=== PATIENT | female | born 1970 | race African-American/Black ===

== ENCOUNTER → 2018-02-04 | Outpatient (CLI) | payer OTHER | END | disposition home or self-care (01) | LOC: MAMMO 09:41 | DX: Z12.31 Encounter for screening mammogram for malignant neoplasm of breast (principal) | CPT/HCPCS: 77067 ==

== ENCOUNTER → 2018-02-15 | Outpatient (CLI) | payer OTHER | END | disposition home or self-care (01) | LOC: MAMMO 13:14 | DX: R92.8 Other abnormal and inconclusive findings on diagnostic imaging of breast (principal) | CPT/HCPCS: 77065; G0279 ==

== ENCOUNTER → 2019-04-07 | Outpatient (CLI) | payer OTHER ==
[2015-10-18 09:09] VITALS: BP 152/88
[~2019-04-07] MED LIST: TRIA1TAB2 PO
--- NOTE | 2019-04-24 10:49 | RAD ---
DATE: 04/07/2019 EXAM: MAMMO VALERY SCREENING BILATERAL HISTORY: Routine screening COMPARISON: 02/15/2018, 02/04/2018 This study was interpreted with the benefit of Computerized Aided Detection (CAD). Breast Density: HETERO The breast parenchyma is heterogenously dense, which could reduce sensitivity of mammography. Breast parenchyma level C. FINDINGS: 2-D and 3-D tomosynthesis imaging was performed in CC and MLO projections. No new or enlarging breast densities are seen. No architectural distortion is evident. Minimal benign type calcifications present. No suspicious microcalcifications have developed. IMPRESSION: There is no mammographic evidence of malignancy in either breast. BI-RADS CATEGORY: 2 BENIGN FINDING(S) RECOMMENDED FOLLOW-UP: 12M 12 MONTH FOLLOW-UP PQRS compliance statement: Patient information was entered into a reminder system with a target due date for the next mammogram. Mammography is a sensitive method for finding small breast cancers, but it does not detect them all and is not a substitute for careful clinical examination. A negative mammogram does not negate a clinically suspicious finding and should not result in delay in biopsying a clinically suspicious abnormality. "Our facility is accredited by the [employer] Mammography Program."
== END | disposition home or self-care (01) ==
LOC: MAMMO 07:58
PROVIDERS: ATTEND Obstetrics & Gynecology
DX: Z12.31 Encounter for screening mammogram for malignant neoplasm of breast (principal); R92.1 Mammographic calcification found on diagnostic imaging of breast
CPT/HCPCS: 77063; 77067

== ENCOUNTER 2019-07-14 17:10 | Emergency (ER) | payer OTHER ==
[~2019-07-14] VITALS: Ht 167.6 cm; Wt 97.1 kg
[2019-07-14] MEDS ORDERED: KETOROLAC 15 MG/ML VIAL. IV ONE (19:00)
[2019-07-14] MEDS ORDERED: ORPHENADRINE CITRATE 60 MG/2 ML VIAL. IV ONE (19:00)
[2019-07-14] MEDS ORDERED: IV NORMAL SALINE 1000ML BAG 1,000 ML IV ONE (19:00)
[2019-07-14 19:21] LABS: BILIRUBIN,URINE NEGATIVE (NEG); CLARITY,URINE CLEAR; COLOR,URINE YELLOW; NITRITE,URINE NEGATIVE (NEG); PROTEIN,URINE NEGATIVE (NEG-TRACE); UROBILINOGEN,URINE 0.2 mg/dL (0.2 mg/dL)
[2019-07-14 19:27] LABS: SQUAMOUS EPITHELIAL CELL,UR MOD /LPF
[2019-07-14 19:28] LABS: BACTERIA,URINE MODERATE /HPF (0-FEW)
[2019-07-14 19:36] LABS: BASO % 0 % (0-3); EOS % 1 % (0-3); HEMOGLOBIN 12.4 g/dL (12.0-15.5); LYMPH # 2.2 x10^3/uL (1.0-4.8); LYMPH % 30 % (24-48); MEAN CORPUSCULAR HEMOGLOBIN 26 pg (25-35); MEAN CORPUSCULAR HGB CONC 34 g/dL (31-37); MEAN CORPUSCULAR VOLUME 76 fL (79-100); MONO # 0.6 x10^3/uL (0.0-1.1); MONO % 9 % (0-9); NEUT # 4.4 x10^3/uL (1.8-7.7); NEUT % 61 % (31-73); PLATELET COUNT 233 x10^3/uL (140-400); RED BLOOD COUNT 4.87 x10^6/uL (3.50-5.40); RED CELL DISTRIBUTION WIDTH 14.6 % (11.5-14.5); WHITE BLOOD COUNT 7.3 x10^3/uL (4.0-11.0)
[2019-07-14 19:45] LABS: CALCIUM 9.3 mg/dL (8.5-10.1); CREATININE 0.9 mg/dL (0.6-1.0); GFR 80.9; POTASSIUM 3.6 mmol/L (3.5-5.1)
[2019-07-14 19:51] LABS: ALBUMIN 3.8 g/dL (3.4-5.0); ALBUMIN/GLOBULIN RATIO 0.8 (1.0-1.7); TOTAL BILIRUBIN 0.7 mg/dL (0.2-1.0); TOTAL PROTEIN 8.7 g/dL (6.4-8.2)
[2019-07-14 19:55] LABS: PROTHROMBIN TIME PATIENT 13.9 SEC (11.7-14.0)
[2019-07-14 19:58] LABS: D-DIMER 0.71 ug/mlFEU (0.00-0.50)
[2019-07-14 20:00] LABS: CREATINE KINASE 140 U/L (26-192)
[2019-07-14 20:23] LABS: PARTIAL THROMBOPLASTIN TIME > 150 SEC (24-38)
[2019-07-14] MEDS ORDERED: CONTRAST GIVEN. MC PRN (21:15)
[2019-07-14] MEDS ORDERED: IOHEXOL 350 MG/ML 100 ML VIAL. IV ONE (21:30)
--- NOTE | 2019-07-14 22:11 | RAD ---
CT ANGIOGRAPHY CHEST Indication: Dyspnea, elevated d-dimer. . Technique: After intravenous contrast administration, CT imaging was performed of the chest. MIP reconstructions were obtained. Exposure: One or more of the following individualized dose reduction techniques were utilized for this examination: 1. Automated exposure control 2. Adjustment of the mA and/or kV according to patient size 3. Use of iterative reconstruction technique. Comparison: None FINDINGS: There is image degradation, probably due to a combination of motion and body habitus. No definite pulmonary embolism is seen. Ascending aorta measures approximately 3.1 cm. There is some wall irregularity of the ascending aorta, likely due to pulsatility artifact. No evidence of aortic aneurysm or descending aortic dissection. Proximal great vessels are patent. The visualized thyroid appears grossly symmetric. No significant lymph node enlargement. No pericardial effusion. No large pleural effusion. Infiltrate/consolidation in the right lower lobe and to lesser extent right middle lobe and left lower lobe. No evidence of dominant pulmonary mass. No evidence of pneumothorax. Trachea and mainstem bronchi are patent. Degenerative changes of the spine. Scans through the upper abdomen are limited due to technique. No definite acute abnormality. IMPRESSION: 1. No evidence of pulmonary embolism. 2. Heterogeneous opacities in the right lower lobe, and to a lesser extent right middle lobe and left lower lobe. Findings may represent infiltrate or pneumonia. Recommend short-term follow-up chest CT after acute treatment, however, to document that these findings resolve. Electronically signed by: Aron Lyon MD (07/14/2019 10:09 PM) [facility]
[2019-07-14 22:30] VITALS: BP 141/79
[2019-07-14] MEDS ORDERED: AZIT250T PO (22:36)
[2019-07-14] MEDS ORDERED: ORPH100T PO (22:36)
--- NOTE | 2019-07-14 22:36 | PHYS DOC ---
Past Medical History Past Medical History: Hypertension Past Surgical History: No Surgical History Additional Information: Nonsmoker Alcohol Use: None Drug Use: None Adult General Chief Complaint Chief Complaint: BACK PAIN OR INJURY HPI HPI 48-year-old female presents with 2 day history of right-sided thoracic back pain. Reports with worse with deep inspiration. Denies leg swelling or calf tenderness. Denies known trauma. Denies fever or chills. Denies dysuria or hematuria. Denies rash. Denies loss of bowel or bladder. Review of Systems Review of Systems Constitutional: Denies fever or chills Eyes: Denies redness or eye pain HENT: Denies nasal congestion or sore throat Respiratory: Denies cough or shortness of breath Cardiovascular: Reports pleuritic chest pain; denies palpitations GI: Denies abdominal pain, nausea, or vomiting : Denies dysuria or hematuria Musculoskeletal: Reports back pain; denies joint pain Integument: Denies rash or skin lesions Neurologic: Denies headache, focal weakness or sensory changes Complete systems were reviewed and found to be within normal limits, except as documented in this note. Current Medications Current Medications Current Medications Medications (Trade) Dose Ordered Sig/Juanita Start Time Stop Time Status Last Admin Dose Admin Info (CONTRAST GIVEN -- Rx MONITORING) 1 each PRN DAILY PRN 07/14/19 21:15 07/14/19 22:53 DC Iohexol (Omnipaque 350 Mg/ml) 100 ml 1X ONCE 07/14/19 21:30 07/14/19 21:31 DC 07/14/19 21:59 100 ML Ketorolac Tromethamine (Toradol 15mg Vial) 15 mg 1X ONCE 07/14/19 19:00 07/14/19 19:01 DC 07/14/19 19:30 15 MG Orphenadrine Citrate (Norflex) 60 mg 1X ONCE 07/14/19 19:00 07/14/19 19:01 DC 07/14/19 19:30 60 MG Sodium Chloride 1,000 ml @ 1,000 mls/hr 1X ONCE 07/14/19 19:00 07/14/19 19:59 DC 07/14/19 19:28 1,000 MLS/HR Allergies Allergies Allergies Coded Allergies Type Severity Reaction Last Updated Verified No Known Drug Allergies 03/12/14 No Physical Exam Physical Exam Constitutional: Well developed, well nourished, no acute distress, non-toxic appearance HENT: Normocephalic, atraumatic, oropharynx moist Eyes: PERRL, EOMI, conjunctiva normal, no discharge Neck: Normal range of motion, no tenderness, supple Cardiovascular: Heart rate normal, regular rhythm Lungs & Thorax: Bilateral breath sounds clear to auscultation, no wheezing Abdomen: Soft, no tenderness Skin: Warm, dry, no erythema, no rash Back: No midline tenderness, no paraspinal tenderness, no CVA tenderness Extremities: No tenderness, ROM intact, no edema Neurologic: Alert and oriented X 3, no focal deficits noted Psychologic: Affect normal, judgement normal Current Patient Data Vital Signs Vital Signs Date Time Temp Pulse Resp B/P (MAP) Pulse Ox O2 Delivery O2 Flow Rate FiO2 07/14/19 22:30 70 32 141/79 (99) 98 Room Air 07/14/19 17:30 98.7 98.7 Lab Values Laboratory Tests Test 07/14/19 19:00 07/14/19 19:15 07/14/19 21:10 Urine Collection Type Unknown Urine Color Yellow Urine Clarity Clear Urine pH 5.0 Urine Specific [place] 1.015 Urine Protein Negative mg/dL (NEG-TRACE) Urine Glucose (UA) Negative mg/dL (NEG) Urine Ketones (Stick) Negative mg/dL (NEG) Urine Blood Negative (NEG) Urine Nitrite Negative (NEG) Urine Bilirubin Negative (NEG) Urine Urobilinogen Dipstick 0.2 mg/dL (0.2 mg/dL) Urine Leukocyte Esterase Negative (NEG) Urine RBC 1-2 /HPF (0-2) Urine WBC 1-4 /HPF (0-4) Urine Squamous Epithelial Cells Mod /LPF Urine Bacteria Moderate /HPF (0-FEW) Urine Mucus Marked /LPF White Blood Count 7.3 x10^3/uL (4.0-11.0) Red Blood Count 4.87 x10^6/uL (3.50-5.40) Hemoglobin 12.4 g/dL (12.0-15.5) Hematocrit 37.0 % (36.0-47.0) Mean Corpuscular Volume 76 fL (79-100) L Mean Corpuscular Hemoglobin 26 pg (25-35) Mean Corpuscular Hemoglobin Concent 34 g/dL (31-37) Red Cell Distribution Width 14.6 % (11.5-14.5) H Platelet Count 233 x10^3/uL (140-400) Neutrophils (%) (Auto) 61 % (31-73) Lymphocytes (%) (Auto) 30 % (24-48) Monocytes (%) (Auto) 9 % (0-9) Eosinophils (%) (Auto) 1 % (0-3) Basophils (%) (Auto) 0 % (0-3) Neutrophils # (Auto) 4.4 x10^3/uL (1.8-7.7) Lymphocytes # (Auto) 2.2 x10^3/uL (1.0-4.8) Monocytes # (Auto) 0.6 x10^3/uL (0.0-1.1) Eosinophils # (Auto) 0.0 x10^3/uL (0.0-0.7) Basophils # (Auto) 0.0 x10^3/uL (0.0-0.2) Prothrombin Time 13.9 SEC (11.7-14.0) Prothrombin Time INR 1.1 (0.8-1.1) Activated Partial Thromboplast Time > 150 SEC (24-38) *H > 150 SEC (24-38) *H D-Dimer (Brandi) 0.71 ug/mlFEU (0.00-0.50) H Sodium Level 141 mmol/L (136-145) Potassium Level 3.6 mmol/L (3.5-5.1) Chloride Level 101 mmol/L (98-107) Carbon Dioxide Level 31 mmol/L (21-32) Anion Gap 9 (6-14) Blood Urea Nitrogen 14 mg/dL (7-20) Creatinine 0.9 mg/dL (0.6-1.0) Estimated GFR (Cockcroft-Gault) 80.9 BUN/Creatinine Ratio 16 (6-20) Glucose Level 100 mg/dL (70-99) H Calcium Level 9.3 mg/dL (8.5-10.1) Magnesium Level 2.0 mg/dL (1.8-2.4) Total Bilirubin 0.7 mg/dL (0.2-1.0) Aspartate Amino Transferase (AST) 16 U/L (15-37) Alanine Aminotransferase (ALT) 10 U/L (14-59) L Alkaline Phosphatase 53 U/L (46-116) Creatine Kinase 140 U/L (26-192) Creatine Kinase MB (Mass) < 0.5 ng/mL (0.0-3.6) Creatine Kinase MB Relative Index % (0-4) Troponin I Quantitative < 0.017 ng/mL (0.000-0.055) TH-Der-J-Type Natriuretic Peptide 76 pg/mL (0-124) Total Protein 8.7 g/dL (6.4-8.2) H Albumin 3.8 g/dL (3.4-5.0) Albumin/Globulin Ratio 0.8 (1.0-1.7) L Lipase 124 U/L (73-393) Laboratory Tests 07/14/19 19:15 Laboratory Tests 07/14/19 19:15 Microbiology 07/14/19 Urine Culture - Final, Complete 07/14/19 Urine Culture Result 1 (JENNIFER) - Final, Complete EKG EKG @1909 NSR at 88bpm, NO ST elevation, Q wave III with inverted t wave, NO ST elevation Radiology/Procedures Radiology/Procedures PROCEDURE: CT ANGIOGRAPHY CHEST CT ANGIOGRAPHY CHEST Indication: Dyspnea, elevated d-dimer. . Technique: After intravenous contrast administration, CT imaging was performed of the chest. MIP reconstructions were obtained. Exposure: One or more of the following individualized dose reduction techniques were utilized for this examination: 1. Automated exposure control 2. Adjustment of the mA and/or kV according to patient size 3. Use of iterative reconstruction technique. Comparison: None FINDINGS: There is image degradation, probably due to a combination of motion and body habitus. No definite pulmonary embolism is seen. Ascending aorta measures approximately 3.1 cm. There is some wall irregularity of the ascending aorta, likely due to pulsatility artifact. No evidence of aortic aneurysm or descending aortic dissection. Proximal great vessels are patent. The visualized thyroid appears grossly symmetric. No significant lymph node enlargement. No pericardial effusion. No large pleural effusion. Infiltrate/consolidation in the right lower lobe and to lesser extent right middle lobe and left lower lobe. No evidence of dominant pulmonary mass. No evidence of pneumothorax. Trachea and mainstem bronchi are patent. Degenerative changes of the spine. Scans through the upper abdomen are limited due to technique. No definite acute abnormality. IMPRESSION: 1. No evidence of pulmonary embolism. 2. Heterogeneous opacities in the right lower lobe, and to a lesser extent right middle lobe and left lower lobe. Findings may represent infiltrate or pneumonia. Recommend short-term follow-up chest CT after acute treatment, however, to document that these findings resolve. Electronically signed by: Aron Lyon MD (07/14/2019 10:09 PM) [facility] Course & Med Decision Making Course & Med Decision Making Pertinent Labs and Imaging studies reviewed. (See chart for details) Patient presents with history of right sided thoracic/CVA tenderness x 2 days. Worse with deep inspiration. HR stable and not hypoxic. NO signs of trauma. NO calf tenderness. Labs obtained and posted to chart. UA without signs of hematuria or infection. D-dimer elevated. PTT significantly elevated. Patient without history of heparin. Repeated PTT and continued to be >150. CTA chest without signs of PE but noted some concern for possible right lower lobe pneumonia. Empiric antibiotics prescribed. NO bleeding noted. H/H stable. Consulted Dr. Raphael Bennett (hematology) regarding. Reports to have PCP repeat in 2 week and if continued elevation to have patient follow-up in office. Patient stable for discharge with outpatient follow-up with PCP/hematology. Discussed findings and plan with patient, who acknowledges understanding and agreement. Dragon Disclaimer Dragon Disclaimer This electronic medical record was generated, in whole or in part, using a voice recognition dictation system. Departure Departure Impression: Primary Impression: Flank pain Additional Impressions: Pneumonia Elevated partial thromboplastin time (PTT) Disposition: 01 HOME, SELF-CARE Condition: STABLE Referrals: MADISON GARCES MD (PCP) RAPHAEL BENNETT MD Patient Instructions: Flank Pain, [id number], Pneumonia, Adult, [id number] Additional Instructions: One of your labs was abnormal today: Your PTT level was >150. You will need to have this lab repeated in 2 weeks with your doctor. IF continued abnormality, you need to follow up with a Card Punching Machine Operator. Dr. Raphael Bennett is listed as a referral. Scripts Orphenadrine Citrate (ORPHENADRINE CITRATE) 100 Mg Tablet.er 100 MG PO BID, #14 Prov: ARON SMITH DO 07/14/19 Azithromycin (ZITHROMAX) 250 Mg Tablet 1 PKG PO UD, #6 TAB Take 2 tablets on day 1 and then 1 tablet each day for the next 4 days as directed Prov: ARON SMITH DO 07/14/19 Problem Qualifiers Additional Impressions: Pneumonia Pneumonia type: due to unspecified organism Laterality: right Lung location: lower lobe of lung Qualified Codes: J18.1 - Lobar pneumonia, unspecified organism ARON SMITH DO Jul 14, 2019 22:36
--- NOTE | 2019-07-17 06:32 | EKG ---
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
== END 2019-07-14 22:52 | disposition home or self-care (01) ==
LOC: ER 17:10
DX: J18.1 Lobar pneumonia, unspecified organism (principal); R10.9 Unspecified abdominal pain; R79.1 Abnormal coagulation profile; I10 Essential (primary) hypertension
CPT/HCPCS: 36415; 71275; 80053; 81001; 82553; 83690; 83735; 83880; 84484; 85025; 85379; 85610; 85730; 87086; 93005; 96374; 96375; 99285; J1885; J2360; J7030; Q9967

== ENCOUNTER → 2020-10-11 | Outpatient (CLI) | payer BC, OTHER ==
[~2020-10-11] MED LIST changes: +AZIT250T PO; +ORPH100T PO
--- NOTE | 2020-10-13 12:54 | RAD ---
DATE: 10/11/2020 9:35 AM EXAM: MAMMO VALERY SCREENING BILATERAL HISTORY: Screening COMPARISON: 07/30/2015, 09/25/2016, 02/04/2018 at 04/07/2019 Bilateral CC and MLO views of the breasts were performed. Bilateral breast tomosynthesis was performed in CC and MLO projections. This study was interpreted with the benefit of Computerized Aided Detection (CAD). FINDINGS: Breast Density: HETERO The breast parenchyma Is heterogeneously dense, which could reduce sensitivity of mammography. Breast parenchyma level C No suspicious masses, microcalcifications or architectural distortion is present to suggest malignancy in either breast. The visualized axillae are unremarkable. IMPRESSION: No mammographic evidence of malignancy. BI-RADS CATEGORY: 1 NEGATIVE RECOMMENDED FOLLOW-UP: 12M 12 MONTH FOLLOW-UP Annual screening mammography is recommended, unless clinically indicated sooner based on symptoms or change in physical exam. PQRS compliance statement: Patient information was entered into a reminder system with a target due date for the next mammogram. Mammography is a sensitive method for finding small breast cancers, but it does not detect them all and is not a substitute for careful clinical examination. A negative mammogram does not negate a clinically suspicious finding and should not result in delay in biopsying a clinically suspicious abnormality. "Our facility is accredited by the [employer] Mammography Program."
== END ==
LOC: MAMMO 09:32
PROVIDERS: ATTEND Obstetrics & Gynecology
DX: Z12.31 Encounter for screening mammogram for malignant neoplasm of breast (principal)
CPT/HCPCS: 77063; 77067

== ENCOUNTER → 2021-10-17 | Outpatient (CLI) | payer BC, OTHER ==
--- NOTE | 2021-10-19 11:25 | RAD ---
Bilateral digital screening 2-D and 3-D (digital breast tomosynthesis) mammogram: Reason for examination: Routine screening. Comparison: Mammograms from 10/11/2020 and 04/07/2019. Interpretation was made with the benefit of CAD. FINDINGS: Breast density: Category B. There are scattered areas of fibroglandular density. No new suspicious breast mass, malignant appearing calcifications, or architectural distortion is see n. IMPRESSION: No evidence of malignancy. Assessment: BI-RADS 1. Negative. Recommendation: Routine screening mammograms. The patient will receive a letter with the results in the mail. Patient information will be entered i nto the mammography reminder system with a target recall date for the next mammogram. A reminder geoffrey er will be generated. Electronically signed by: Maddie Baker MD (10/19/2021 11:23 AM) [id number]
== END ==
LOC: MAMMO 08:45
PROVIDERS: ATTEND Internal Medicine
DX: Z12.31 Encounter for screening mammogram for malignant neoplasm of breast (principal)
CPT/HCPCS: 77063; 77067